=== PATIENT | female | born 1975 | race Caucasian/White ===

== ENCOUNTER 2020-12-15 22:05 | Emergency (ER) | payer OTHER ==
[~2020-12-15] VITALS: Ht 172.7 cm; Wt 112.8 kg
--- NOTE | 2020-12-15 22:09 | PHYS DOC ---
Past History Past Medical History: GERD, Hypertension, P.U.D Past Surgical History Bariatric surgery General Adult EDM: Chief Complaint: DIZZY/LIGHT HEADED HPI: HPI: ".. I was just sitting on the floor petting out dog Mary Alice.. and watching TV.. . and started feeling a little off .. and went to go up stairs to lay down for a while.. I got to the lower landing.. and got really dizzy.. like I was going to pass out... " "I dod have hx of hypertension.. .. some episodes of cellulitis... in my ear.. but not had problems like this... I did have a lot of wt. loss after some bariatric surgery... Lap band." Patient is a 45 year old female who presents with above hx and complaints of dizzy and near syncope today. Patient denies any recent changes in medicines. Has been compliant with her hypertensive meds. Patient normally follows with Dr. Burroughs's office. Patient denies any recent travel. No specific ill contacts. 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 No history of previous syncope episodes. Patient states prior to her episode of dizziness felt like her heart was racing. On arrival patient was tachycardic. Patient denies any chest pain. Patient denies any dyspnea. Patient has had some increased stressors at work. Patient does not smoke. No history immunosuppression. Has had a three admissions for cellulitis of her ear. Review of Systems: Review of Systems: Constitutional: Denies fever or chills Eyes: Denies change in visual acuity HENT: Denies nasal congestion or sore throat Respiratory: Denies cough or shortness of breath Cardiovascular: Denies chest pain or edema GI: Denies abdominal pain,, vomiting, bloody stools or diarrhea. Complains of nausea : Denies dysuria Musculoskeletal: Denies back pain or joint pain Integument: Denies rash Neurologic: Denies headache, focal weakness or sensory changes complaints of dizziness Endocrine: Denies polyuria or polydipsia Lymphatic: Denies swollen glands Psychiatric: Denies depression or anxiety Family History: Family History: Noncontributory to presentation Daughter has hx of Lyme disease Current Medications: Current Meds: See nursing for home meds Allergies: Allergies: Allergic to shellfish and nuts Physical Exam: PE: Constitutional: Moderate acute distress, non-toxic appearance. [] HENT: Normocephalic, atraumatic, bilateral external ears normal, oropharynx moist, no oral exudates, nose normal. [] Eyes: PERRLA, EOMI, conjunctiva normal, no discharge. [] Neck: Normal range of motion, no tenderness, supple, no stridor. [Prominent anterior chain cervical nodes and thyroid. Cardiovascular: Tachycardia heart rate regular rhythm, no murmur []. PMI slightly to the left Lungs & Thorax: Bilateral breath sounds equal apex on auscultation [] Abdomen: Bowel sounds normal, soft, no tenderness, no masses, no pulsatile masses. Old surgical scars-lap band surgery. Mild obesity Skin: Warm, dry, no erythema, no rash. [] Back: No tenderness, no CVA tenderness. [] Extremities: No tenderness, no cyanosis, no clubbing, ROM intact, trace ankle edema. [] No cording appreciated Neurologic: Alert and oriented X 3, moves all extremities on request, has distal sensory,, no focal deficits noted. [] DTRs +2 patella and brachial. Psychologic: Affect anxious, judgement normal, mood normal. [] EKG: EKG: [] My interpretation of EKG shows a sinus rhythm at 91 bpm. There are some bimodal P waves and left leads. There is mild leftward axis. But no findings of acute STEMI of contralateral changes. My interpretation EKG #2 at 0 53 minutes. Shows a sinus rhythm at 90 bpm. Left axis. No findings acute STEMI of contralateral changes. No acute morphology changes from prior EKG on file. Radiology/Procedures: Radiology/Procedures: [[address] [id number] IMAGING REPORT Signed PATIENT: ANGELO HUMPHRIES ACCOUNT: [id number] : 1975 LOCATION: ER AGE: 45 SEX: F EXAM STATUS: REG ER ORD. PHYSICIAN: MANDO SAGASTUME MD REASON: Dizzy, hx recurrrent cellulitis ear, adenopathy? PROCEDURE: CT HEAD AND CERVICAL SPINE WO CT head without contrast: Reason for examination: Dizziness. History of recurrent cellulitis in the ear. Helical images were obtained through the brain. No contrast was administered. Ventricular systems are symmetric and not dilated. No midline shift is seen. There is no evidence of intracranial hemorrhage, infarct, mass or edema. No abnormality seen at the orbits. The paranasal sinuses and mastoid air cells are clear. No acute skull abnormality is seen. IMPRESSION: No acute intracranial abnormality evident. CT cervical spine without contrast: Helical images were obtained through the cervical spine from skull base through the thoracic apices with no contrast administered. Reconstruction was performed in sagittal and coronal planes. The C1 ring is intact. The odontoid process is intact and normally centered between the lateral masses of C1. The cervical vertebral bodies are normally aligned anteriorly and posteriorly. No acute fracture or subluxation is seen. Posterior elements are intact. The intervertebral discs are maintained. Prevertebral soft tissues are normal. There is no apparent spinal stenosis. Muscular bundles show no abnormalities. Note is made of small lymph nodes in the neck. IMPRESSION: No acute abnormality evident in the cervical spine. Multiple small lymph nodes in the neck. Exposure: One or more of the following individualized dose reduction techniques were utilized for this examination: 1. Automated exposure control 2. Adjustment of the mA and/or kV according to patient size 3. Use of iterative reconstruction technique. Electronically signed by: Kelsy Nails MD (12/16/2020 12:15 AM) [facility] DICTATED AND SIGNED BY: KELSY NAILS MD DATE: 12/16/208 CC: MANDO SAGASTUME MD; PCP,UNKNOWN ~MTH0 0 ][place] [id number] IMAGING REPORT Signed PATIENT: ANGELO HUMPHRIES ACCOUNT: [id number] : 1975 LOCATION: ER AGE: 45 SEX: F EXAM STATUS: REG ER ORD. PHYSICIAN: MANDO SAGASTUME MD REASON: dizzy, short of breath PROCEDURE: CHEST PA & LATERAL Chest PA and lateral 12/15/2020. Reason for exam: Dizziness and shortness of breath. No infiltrate or effusion is seen. Heart size and pulmonary vascularity appear normal. IMPRESSION: No acute abnormality. Electronically signed by: Eugene Azevedo Jr., MD (12/15/2020 11:02 PM) [facility] DICTATED AND SIGNED BY: EUGENE AZEVEDO Jr, MD DATE: 12/15/202301 CC: MANDO SAGASTUME MD; PCP,UNKNOWN ~MTH0 0 Heart Score: C/O Chest Pain: No HEART Score for Chest Pain: HEART Score for Chest Pain Response (Comments) Value History Slighlty/Non-Suspicious 0 ECG Nonspecific Repolarizatio 1 Age >45 - < 65 1 Risk Factors 1 or 2 Risk Factors 1 Troponin < Normal Limit 0 Total 3 Risk Factors: Risk Factors: DM, Current or recent (<one month) smoker, HTN, HLP, family history of CAD, obesity. Risk Scores: Score 0 - 3: 2.5% MACE over next 6 weeks - Discharge Home Score 4 - 6: 20.3% MACE over next 6 weeks - Admit for Clinical Observation Score 7 - 10: 72.7% MACE over next 6 weeks - Early Invasive Strategies Course & Med Decision Making: Course & Med Decision Making Pertinent Labs and Imaging studies reviewed. (See chart for details) Patient take a daily baby aspirin. Follow-up primary care. Patient consider outpatient stress testing. Consider excision lymph node one of her cervical nodes. Have this evaluated both with cultures and cytology. Return if any concerns. Follow-up primary care. Followup pending COVID testing. Wear Clonidine patch until follow up with primary. Discussed need for possible change in BP meds. Take you BP monitor in with you and do comparison readings at Dr. office. Record BP readings and show this to your doctor. Return if any concerns. Impression: 1. Near syncope 2. Dizzy 3. Multiple small cervical nodes. 4. HTN [] Dragon Disclaimer: Dragon Disclaimer: This electronic medical record was generated, in whole or in part, using a voice recognition dictation system. Dragon Disclaimer This chart was dictated in whole or in part using Voice Recognition software in a busy, high-work load, and often noisy Emergency Department environment. It may contain unintended and wholly unrecognized errors or omissions. Dragon Disclaimer This chart was dictated in whole or in part using Voice Recognition software in a busy, high-work load, and often noisy Emergency Department environment. It may contain unintended and wholly unrecognized errors or omissions. MANDO SAGASTUME MD Dec 15, 2020 22:09
[2020-12-15] MEDS ORDERED: IV RINGERS SOLUTION,LACTATED 1,000 ML IV SCH (22:30)
[2020-12-15 22:56] LABS: CALCIUM 9.3 mg/dL (8.5-10.1); GFR 59.4; POTASSIUM 4.1 mmol/L (3.5-5.1)
--- NOTE | 2020-12-15 23:05 | RAD ---
Chest PA and lateral 12/15/2020. Reason for exam: Dizziness and shortness of breath. No infiltrate or effusion is seen. Heart size and pulmonary vascularity appear normal. IMPRESSION: No acute abnormality. Electronically signed by: Diego Azevedo Jr., MD (12/15/2020 11:02 PM) [facility]
[2020-12-15 23:10] LABS: ALBUMIN 3.6 g/dL (3.4-5.0); DIRECT BILIRUBIN 0.1 mg/dL (0.0-0.2); MAGNESIUM 2.1 mg/dL (1.8-2.4); TOTAL BILIRUBIN 0.3 mg/dL (0.2-1.0); TOTAL PROTEIN 7.5 g/dL (6.4-8.2)
[2020-12-15 23:17] LABS: BASO # 0.1 x10^3/uL (0.0-0.2); BASO % 1 % (0-3); EOS # 0.4 x10^3/uL (0.0-0.7); EOS % 4 % (0-3); HEMOGLOBIN 13.9 g/dL (12.0-15.5); LYMPH # 4.2 x10^3/uL (1.0-4.8); LYMPH % 42 % (24-48); MEAN CORPUSCULAR HEMOGLOBIN 31 pg (25-35); MEAN CORPUSCULAR HGB CONC 33 g/dL (31-37); MEAN CORPUSCULAR VOLUME 94 fL (79-100); MONO % 10 % (0-9); NEUT # 4.4 x10^3uL (1.8-7.7); NEUT % 43 % (31-73); PLATELET COUNT 385 x10^3/uL (140-400); RED BLOOD COUNT 4.45 x10^6/uL (3.50-5.40); RED CELL DISTRIBUTION WIDTH 13.2 % (11.5-14.5); WHITE BLOOD COUNT 10.1 x10^3/uL (4.0-11.0)
[2020-12-15 23:20] LABS: BACTERIA,URINE 0 /HPF (0-FEW); BILIRUBIN,URINE NEG (NEG); CLARITY,URINE CLEAR; COLOR,URINE YELLOW; GLUCOSE,URINE NEG (NEG); NITRITE,URINE NEG (NEG); RBC,URINE 0 /HPF (0-2); SQUAMOUS EPITHELIAL CELL,UR OCC /LPF; WBC,URINE 0 /HPF (0-4)
[2020-12-15 23:23] LABS: AMPHETAMINE/METHAMPHETAMINE NEG (NEG); BARBITURATES NEG (NEG); BENZODIAZEPINES NEG (NEG); CANNABINOIDS NEG (NEG); COCAINE NEG (NEG); METHADONE NEG (NEG); OPIATES NEG (NEG); PHENCYCLIDINE NEG (NEG)
--- NOTE | 2020-12-16 00:18 | RAD ---
CT head without contrast: Reason for examination: Dizziness. History of recurrent cellulitis in the ear. Helical images were obtained through the brain. No contrast was administered. Ventricular systems are symmetric and not dilated. No midline shift is seen. There is no evidence of intracranial hemorrhage, infarct, mass or edema. No abnormality seen at the orbits. The paranasal sin uses and mastoid air cells are clear. No acute skull abnormality is seen. IMPRESSION: No acute intracranial abnormality evident. CT cervical spine without contrast: Helical images were obtained through the cervical spine from skull base through the thoracic apices w ith no contrast administered. Reconstruction was performed in sagittal and coronal planes. The C1 ring is intact. The odontoid process is intact and normally centered between the lateral yanet s of C1. The cervical vertebral bodies are normally aligned anteriorly and posteriorly. No acute frac ture or subluxation is seen. Posterior elements are intact. The intervertebral discs are maintained. Prevertebral soft tissues are normal. There is no apparent spinal stenosis. Muscular bundles show no abnormalities. Note is made of small lymph nodes in the neck. IMPRESSION: No acute abnormality evident in the cervical spine. Multiple small lymph nodes in the neck. Exposure: One or more of the following individualized dose reduction techniques were utilized for thi s examination: 1. Automated exposure control 2. Adjustment of the mA and/or kV according to patient size 3. Use of iterative reconstruction technique. Electronically signed by: Pam Murry MD (12/16/2020 12:15 AM) [facility]
--- NOTE | 2020-12-16 00:24 | EKG ---
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
[2020-12-16] MEDS ORDERED: ASPIRIN 325 MG TABLET PO ONE (01:30)
[2020-12-16] MEDS ORDERED: cloNIDine TTS-2 1 PATCH PATCH TD ONE (02:30)
[2020-12-16 02:35] VITALS: BP 163/110
--- NOTE | 2020-12-16 09:52 | EKG ---
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
== END 2020-12-16 02:35 | disposition home or self-care (01) ==
LOC: ER 22:05
DX: R55 Syncope and collapse (principal); Z20.822 Contact with and (suspected) exposure to COVID-19; R22.1 Localized swelling, mass and lump, neck; I10 Essential (primary) hypertension; K21.9 Gastro-esophageal reflux disease without esophagitis; R00.0 Tachycardia, unspecified; R11.0 Nausea; Z91.018 Allergy to other foods; Z91.013 Allergy to seafood
CPT/HCPCS: 36415; 70450; 71046; 72125; 80048; 80076; 80307; 81001; 82550; 83690; 83735; 83880; 84443; 84484; 85025; 85379; 85610; 85730; 93005; 96360; 99285; J7120; U0003; C9803

== ENCOUNTER → 2021-01-01 | Outpatient (CLI) | payer OTHER ==
[2020-12-16 02:35] VITALS: BP 163/110
--- NOTE | 2021-01-01 13:35 | RAD ---
Ultrasound soft tissues of the neck for cervical lymph node swelling, neck fullness. TECHNIQUE: Real-time grayscale and color Doppler evaluation of the soft tissues of the neck is perfor med. There are several small lymph nodes noted bilaterally. On the right, there is a 1.3 cm lymph nod e which does contain a normal fatty hilum, but which is somewhat lobulated peripheral margins. This i s equivocal, however given its small size and fatty hilum, benignity is favored. Within the left neck , there are several morphologically normal-appearing lymph nodes, the largest which is 2.0 x 0.9 x 0. 8 cm. No definitely suspicious adenopathy is seen on either side. IMPRESSION: 1. Bilateral cervical adenopathy, with no definitely suspicious nodules identified. On the right, the re is a normal-sized lymph node which demonstrates some peculiar scalloping of its contour, rendering it equivocal. Given its small size and fatty hilum, benign-appearing is favored, however I recommend short-term follow-up ultrasound study in 6 weeks to ensure stability. Electronically signed by: Agustin Garduno MD (01/01/2021 1:33 PM) [id number]
== END ==
LOC: US 07:54
PROVIDERS: ATTEND Physician Assistant
DX: R59.0 Localized enlarged lymph nodes (principal)
CPT/HCPCS: 76536